=== PATIENT | male | born 1945 | race Caucasian/White ===

== ENCOUNTER 2022-04-01 08:40 | Emergency (ER) | payer OTHER ==
[~2022-04-01] VITALS: Ht 188 cm; Wt 83.9 kg
[2022-04-01 09:38] LABS: BASOPHILS ABSOLUTE AUTO 0.02 K/mm3 (0.00-0.23); BASOPHILS PERCENT AUTO 1 % (0-2); EOSINOPHILS ABSOLUTE AUTO 0.08 K/mm3 (0.00-0.68); EOSINOPHILS PERCENT AUTO 2 % (0-6); Hematocrit 36.2 % (37.0-53.0); Hemoglobin 11.8 g/dL (13.5-17.5); IMMATURE GRAN ABSOLUTE AUTO 0.02 K/mm3 (0.00-0.10); IMMATURE GRAN PERCENT AUTO 1 % (0-1); LYMPHOCYTES ABSOLUTE AUTO 0.67 K/mm3 (0.84-5.20); LYMPHOCYTES PERCENT AUTO 15 % (21-46); MONOCYTES ABSOLUTE AUTO 0.55 K/mm3 (0.16-1.47); MONOCYTES PERCENT AUTO 13 % (4-13); Mean Corpuscular HGB 29.1 pg (26.0-34.0); Mean Corpuscular HGB Conc 32.6 g/dL (31.5-36.5); Mean Corpuscular Volume 89 fL (80-100); Mean Platelet Volume 10.6 fL (9.1-12.4); NEUTROPHILS ABSOLUTE AUTO 3.06 K/mm3 (1.96-9.15); NEUTROPHILS PERCENT AUTO 70 % (41-73); Platelet Count 189 K/mm3 (150-400); RDW Coefficient Variation 13.9 % (11.7-14.2); RDW Standard Deviation 45.1 fL (35.1-46.3); Red Blood Cell Count 4.05 M/mm3 (4.30-5.90)
[2022-04-01 09:55] LABS: Albumin, Blood 2.7 g/dL (3.4-5.0); Albumin/Globulin Ratio 0.9 (0.8-1.8); Bilirubin, Total 0.5 mg/dL (0.1-1.0); Bun/Creatinine Ratio 9.8 (12.0-20.0); Calcium, Blood 8.5 mg/dL (8.5-10.1); Creatinine, Blood 1.53 mg/dL (0.60-1.20); Potassium, Blood 3.5 mmol/L (3.5-5.5); Total Protein, Blood 5.7 g/dL (6.4-8.2)
[2022-04-01] MEDS ORDERED: PRAZ1 PO (10:04)
[2022-04-01] MEDS ORDERED: LEVSOD25 PO (10:04)
[2022-04-01] MEDS ORDERED: DULO60 PO (10:04)
[2022-04-01] MEDS ORDERED: FAMO20 PO (10:05)
[2022-04-01] MEDS ORDERED: COLCHICINE0.6 MG PO (10:05)
[2022-04-01] MEDS ORDERED: MIRT15ST PO (10:05)
[2022-04-01] MEDS ORDERED: LOSA25 PO (10:05)
[2022-04-01] MEDS ORDERED: GABA300 PO (10:06)
[2022-04-01] MEDS ORDERED: TRAM50 PO (10:06)
[2022-04-01] MEDS ORDERED: CARV25 PO (10:07)
[2022-04-01] MEDS ORDERED: POTASSIUM CITR10 MEQ PO (10:07)
[2022-04-01] MEDS ORDERED: ELIQUIS5 M2 PO (10:07)
[2022-04-01] MEDS ORDERED: AMLO10 PO (10:07)
[2022-04-01] MEDS ORDERED: ALLO100 PO (10:07)
[2022-04-01] MEDS ORDERED: FISH OIL 1,2001 EAC7 PO (10:08)
[2022-04-01] MEDS ORDERED: DICLOFENAC SOD100 GM TOP (10:08)
[2022-04-01] MEDS ORDERED: TRANSDERM-SCOP1 EA10 TD (10:08)
[2022-04-01] MEDS ORDERED: VITAMIN B-122000 MC1 PO (10:09)
== END 2022-04-01 12:38 | disposition home or self-care (01) ==
LOC: ER 08:40
PROVIDERS: Physician Assistant
DX: I48.91 Unspecified atrial fibrillation (principal); C79.51 Secondary malignant neoplasm of bone; Z88.0 Allergy status to penicillin; Z88.1 Allergy status to other antibiotic agents; Z79.899 Other long term (current) drug therapy; Z79.01 Long term (current) use of anticoagulants
CPT/HCPCS: 36415; 71045; 80053; 83880; 84484; 85025; 93005; 93010; J7030

== ENCOUNTER 2022-06-30 08:53 | Emergency (ER) | payer OTHER ==
[~2022-06-30] VITALS: Ht 188 cm; Wt 70.5 kg
[~2022-06-30 08:53] MED LIST: ALLO100 PO; AMLO10 PO; CARV25 PO; COLCHICINE0.6 MG PO; DICLOFENAC SOD100 GM TOP; DULO60 PO; ELIQUIS5 M2 PO; FAMO20 PO; FISH OIL 1,2001 EAC7 PO; GABA300 PO; LEVSOD25 PO; LOSA25 PO; MIRT15ST PO; POTASSIUM CITR10 MEQ PO; PRAZ1 PO; TRAM50 PO; TRANSDERM-SCOP1 EA10 TD; VITAMIN B-122000 MC1 PO
[2022-06-30 10:24] LABS: BASOPHILS ABSOLUTE AUTO 0.01 K/mm3 (0.00-0.23); BASOPHILS PERCENT AUTO 0 % (0-2); EOSINOPHILS ABSOLUTE AUTO 0.01 K/mm3 (0.00-0.68); EOSINOPHILS PERCENT AUTO 0 % (0-6); Hematocrit 37.3 % (37.0-53.0); Hemoglobin 12.2 g/dL (13.5-17.5); IMMATURE GRAN ABSOLUTE AUTO 0.02 K/mm3 (0.00-0.10); IMMATURE GRAN PERCENT AUTO 0 % (0-1); LYMPHOCYTES ABSOLUTE AUTO 0.27 K/mm3 (0.84-5.20); LYMPHOCYTES PERCENT AUTO 3 % (21-46); MONOCYTES ABSOLUTE AUTO 0.53 K/mm3 (0.16-1.47); MONOCYTES PERCENT AUTO 6 % (4-13); Mean Corpuscular HGB 28.4 pg (26.0-34.0); Mean Corpuscular HGB Conc 32.7 g/dL (31.5-36.5); Mean Corpuscular Volume 87 fL (80-100); Mean Platelet Volume 11.8 fL (9.1-12.4); NEUTROPHILS ABSOLUTE AUTO 8.55 K/mm3 (1.96-9.15); NEUTROPHILS PERCENT AUTO 91 % (41-73); Platelet Count 140 K/mm3 (150-400); RDW Coefficient Variation 18.7 % (11.7-14.2); White Blood Cell Count 9.39 K/mm3 (4.00-11.30)
[2022-06-30 10:51] LABS: Albumin, Blood 3.1 g/dL (3.4-5.0); Bilirubin, Total 0.9 mg/dL (0.1-1.0); Bun/Creatinine Ratio 13.3 (12.0-20.0); Calcium, Blood 8.2 mg/dL (8.5-10.1); Creatinine, Blood 1.35 mg/dL (0.60-1.20); Potassium, Blood 3.3 mmol/L (3.5-5.5); Total Protein, Blood 6.1 g/dL (6.4-8.2)
[2022-06-30] MEDS ORDERED: POWDERLAX238 GM PO (15:43)
== END 2022-06-30 17:19 | disposition home or self-care (01) ==
LOC: ER 08:53
PROVIDERS: Physician Assistant
DX: I48.91 Unspecified atrial fibrillation (principal); K59.00 Constipation, unspecified; Z88.0 Allergy status to penicillin; Z88.1 Allergy status to other antibiotic agents; Z79.890 Hormone replacement therapy; Z79.899 Other long term (current) drug therapy; Z79.01 Long term (current) use of anticoagulants; Z87.891 Personal history of nicotine dependence
CPT/HCPCS: 71045; 74018; 80053; 83735; 83880; 84484; 85025; 92960; 93005; 93010; 96365-59; 96366-59; 96367-59; 99152; 99285-25; J3475; J3480; J7030; J7050